=== PATIENT | male | born 1985 | race African-American/Black ===

== ENCOUNTER 2022-08-11 06:33 | Day surgery (SDC) | payer OTHER ==
[2022-08-11] VITALS (306 sets, daily range): BP systolic 92–184; BP diastolic 47–124
[~2022-08-11] VITALS: Ht 180.3 cm; Wt 114.6 kg
--- NOTE | 2022-08-11 06:45 | NUR ---
Patient arrived to the [facility] suite, identification and demographics confirmed. Patient to room 10, AAO, ambulatory, vitals obtained, ID/allergy/fall bands placed, changed into hospital gown, MANNIE hose, and non-slip socks. Procedure and timeline explained for treatment and discharge. All questions answered and the patient presents no concerns at this time.
--- NOTE | 2022-08-11 07:42 | NUR ---
Dr. Lopes telephoned with patient intake information including usage, dose, last dose/time taken and initial vital signs. Patient history and allergies reviewed with MD. Orders received for 15 mg PO Valium and 0.3 mg PO Clonidine now. Will reassess per protocol in 1.5 hours and update MD with assessment and vitals.
--- NOTE | 2022-08-11 08:00 | NUR ---
Patient medicated per MD orders. In addition to Clonidine and Valium, patient received 1000 mcg B12 PO, 20 mg Pepcid PO, and Scopolamine TD patch. Medication indication and education provided prior to adminstration.
[2022-08-11 08:13] LABS: BASO% 0.4 % (0-3); EOS% 4.4 % (0-8); HEMATOCRIT 41.3 % (39.0-50.0); HEMOGLOBIN 12.9 g/dl (14.0-18.0); IMMATURE GRANULOCYTES 0.3 % (0.0-5.0); LYMPH% 36.5 % (15-41); MEAN CORPUSCULAR HGB 28.4 pG CALC (26.0-32.0); MEAN CORPUSCULAR HGB CONC 31.2 g/dL CAL (32.0-36.0); MONO% 9.8 % (2-13); NEUT# 3.32 thou/uL (1.82-7.42); NEUT% 48.6 % (42-76); RED BLOOD COUNT 4.54 mill/uL (4.70-6.10)
[2022-08-11 08:43] LABS: ALBUMIN 4.6 g/dL (3.2-5.0); ALKALINE PHOSPHATASE 82 u/l (38-126); ANION GAP 10 (6-22 (CALC)); BILIRUBIN, TOTAL 0.3 mg/dL (0.2-1.3); BUN 18 mg/dL (9-20); BUN/CREATININE RATIO 20 (12-20 (CALC)); CARBON DIOXIDE 29 mmol/l (22-30); CHLORIDE 107 mmol/l (95-108); CREATININE 0.9 mg/dL (0.7-1.3); GFR FOR AFR.AMER. > 60 ML/MIN (>=60 (CALC)); GFR OTHER RACES > 60 ML/MIN (>=60 (CALC)); POTASSIUM 4.1 mmol/l (3.5-5.1); SGOT/AST 26 u/l (17-59); SODIUM 143 mmol/l (137-146); TOTAL PROTEIN 7.1 g/dL (6.3-8.2)
--- NOTE | 2022-08-11 08:45 | NUR ---
Patient resting comfortably in bed. Easily aroused, maintains focus, and drifts back to sleep. No signs of active withdrawal or distress noted at this time. Continuous SPO2, rhythm, and respiratory monitoring initiated. IVF @ 250 mL/HR, room air, VSS.
--- NOTE | 2022-08-11 09:30 | NUR ---
MD updated with 1.5 hour reassessment. Patient sleeping and vital signs are within pre-treatment parameters. No additional Clonidine or Valium at this time. Continuous monitoring in place.
--- NOTE | 2022-08-11 10:35 | NUR ---
Patient resting comfortably in bed. Easily aroused, maintains focus, and drifts back to sleep. No signs of withdrawal or distress noted at this time.
--- NOTE | 2022-08-11 11:05 | NUR ---
Nebulized treatment and Protonix administered per orders. Patient easily aroused, follows commands, appropriate conversation, reports no distress or withdrawal symtoms. Induction to begin in approximately 15 minutes.
--- NOTE | 2022-08-11 11:05 | NUR ---
Induction Note Patient to [facility] procedure room 10. Time out performed at 1105, patient placed on diagnostic cardiac sonographer, Chris hugger, and bilateral wrist restraints were applied for ET tube protection. Versed 5mg given IV push at 1106, tourniquet applied to RIGHT arm, lidocaine 100 mg IVP given at 1112, followed by Rocuronium 10mg IVP at 1112 and held for 45 seconds. Propofol 200 mg IVP given at 1114. Succinylcholine 100 mg IVP at 1114. Smooth intubation with 7.5 ETT @ 23L at 1115. Positive CO2. Positiveauscultation for air exchange. Patient placed on ventilator for spontaneous ventilation. Placed on Propofol IV drip at 1115. OG inserted at 1120. Positive air on auscultation. Positive gastric content. Stomach washed at this time.
--- NOTE | 2022-08-11 11:35 | NUR ---
OG close note Stomach washed at this time. Naltrexone 50 mg with Clonidine 0.2 mg via OG tube. OG will be clamped for 45 minutes.
--- NOTE | 2022-08-11 12:20 | NUR ---
OG open note OG open at this time. Gastric content draining into drainage bag. OG to drain for 45 minutes. Propofol will be titrated down based on patient.
--- NOTE | 2022-08-11 13:15 | NUR ---
OG close note Stomach washed at this time. Naltrexone 50 mg with Clonidine 0.3 mg via OG tube. OG will be clamped for 45 minutes.
[2022-08-11] MEDS ORDERED: NALTREXONE50 MG PO (13:19)
[2022-08-11] MEDS ORDERED: KLONOPIN2 MG PO (13:20)
[2022-08-11] MEDS ORDERED: CLONIDINE0.1 MG PO (13:20)
--- NOTE | 2022-08-11 15:00 | NUR ---
OG close note Stomach washed at this time. Naltrexone 50 mg with Clonidine 0.3 mg via OG tube. OG will be clamped for 45 minutes.
--- NOTE | 2022-08-11 16:30 | NUR ---
No OG close at this time. Patient minimally reacting to treatment. Vitals, total Naltrexone & Clonidine, current Propofol infusion rate, treatment duration, and patient assessment discussed with Dr. Lopes. No orders for medication administration at this time. OG will remain open to allow time for patient to continue reacting to therapy.
--- NOTE | 2022-08-11 17:15 | NUR ---
OG close note Stomach washed at this time. Naltrexone 0 mg with Clonidine 0.3 mg via OG tube. OG will be clamped for 45 minutes.
--- NOTE | 2022-08-11 18:30 | NUR ---
Extubation note Closing medications given Benadryl 50mg IV push, Decadron 10mg IV push,Magnesium 4 grams IV, Zofran 8mg IV push, Octreotide 100mcg SC. Stomach washed out prior to extubation. Suctioned gastric content. OG removed.pt had serosanguineous emesis, turned to side and suctiones oral cavity. Patient extubated without difficulty. Propofol Discontinued. Wrist restraints removed. Chris hugger Removed. See ANR Moderate sedate recovery record for further notes and assessment.
--- NOTE | 2022-08-11 18:40 | NUR ---
Emergent re-intubation for visualization of esophagus and trachea s/p extubation. Dr Lopes at bedside and gave the following orders for emergent administration: 160 mg IVP Propofol, 100 mg Succinylcholine, Propofol infusion, Protonix 40 mg IVP, Hydralazine 10 mg IVP x2 15 mins apart, STAT CXR. Propofol infusion discontinued at 1919, patient extubated without difficulty at 1943.
--- NOTE | 2022-08-11 18:40 | NUR ---
Pt noted with heme in orapharynx, intubated to facilitate placement of the OG tube for stomach decompression. Small amount of serosanguiness fluid from stomach .Hemostasis achieved in oropharynx with suction and compression with gauze packing. vss, o2 sat 100% on spontaneous vent settings. md at bedside. xray called for cxr.
--- NOTE | 2022-08-11 20:31 | NUR ---
notified of radiology report. No orders at this time.
--- NOTE | 2022-08-11 20:55 | NUR ---
Patient to room 283 in no acute distress. Transfer of care to Medical/Surgical [facility] RAYSHAWN Solorzano at bedside. 4L NC placed per orders, IVF to continue at 100 ml/hr. VSS. Patient making appropriate requests and answering yes/no questions. Bed alarm set. See chart/EMAR for procedural details and assessments. Handoff of care at the time of this note.
--- NOTE | 2022-08-11 21:10 | NUR ---
PATIENT RECEIVED TO ROOM 284. EASILY AROUSED. VITAL SIGNS OBTAINED, PATIENT HYPERTENSIVE; MEDICATED PRIOR TO ARRIVAL. NO DISTRESS NOTED. BEDSIDE REPORT RECEIVED FROM RAYSHAWN ORTEGA. BED LOCKED IN LOW POSITION, ALARM ACTIVATED.
[2022-08-12 00:31] VITALS: BP 139/84
--- NOTE | 2022-08-12 00:31 | NUR ---
PATIENT LAYING IN BED, A LITTLE RESTLESS. BP 139/84 AFTER APRESOLINE 10MG IVP. PATIENT STABLE, NO DISTRESS NOTED.
--- NOTE | 2022-08-12 01:10 | NUR ---
PATIENT RESTLESS AND AGITATED. YELLING OUT AT PEOPLE THAT ARE NOT PRESENT, ATIVAN 2MG GIVEN.
[2022-08-12 03:57] VITALS: BP 128/90
--- NOTE | 2022-08-12 04:14 | NUR ---
RESTING EYES CLOSED. VSS. NO DISTRESS NOTED.
--- NOTE | 2022-08-12 04:22 | NUR ---
SMALL BROWN EMESIS. HOB ELEVATED. PATIENT PREVIOUSLY ADMINISTERED SCHEDULED REGLAN.
[2022-08-12 05:39] LABS: HEMOGLOBIN 12.9 g/dl (14.0-18.0); IMMATURE GRANULOCYTES 0.7 % (0.0-5.0); LYMPH% 5.3 % (15-41); MEAN CELL VOLUME 86.7 fL CALC (80.0-100.0); MEAN CORPUSCULAR HGB 28.7 pG CALC (26.0-32.0); MEAN CORPUSCULAR HGB CONC 33.1 g/dL CAL (32.0-36.0); MONO% 5.6 % (2-13); NEUT# 20.42 thou/uL (1.82-7.42); NEUT% 88.4 % (42-76); RED BLOOD COUNT 4.5 mill/uL (4.70-6.10); RED CELL DISTRI WIDTH 12.8 % (11.5-15.5)
[2022-08-12 05:59] LABS: ALBUMIN 4.4 g/dL (3.2-5.0); ALKALINE PHOSPHATASE 90 u/l (38-126); BILIRUBIN, TOTAL 0.4 mg/dL (0.2-1.3); BUN 12 mg/dL (9-20); BUN/CREATININE RATIO 16 (12-20 (CALC)); CHLORIDE 108 mmol/l (95-108); CREATININE 0.8 mg/dL (0.7-1.3); GFR FOR AFR.AMER. > 60 ML/MIN (>=60 (CALC)); GFR OTHER RACES > 60 ML/MIN (>=60 (CALC)); MAGNESIUM 2.3 mg/dL (1.6-2.3); SGOT/AST 26 u/l (17-59); SODIUM 138 mmol/l (137-146); TOTAL PROTEIN 6.9 g/dL (6.3-8.2)
[2022-08-12 06:02] LABS: ANION GAP 14 (6-22 (CALC)); POTASSIUM 3.6 mmol/l (3.5-5.1)
[2022-08-12 06:06] LABS: CARBON DIOXIDE 20 mmol/l (22-30)
--- NOTE | 2022-08-12 07:00 | NUR ---
REPORT FROM MIRIAM TABARES. ASSUMED PT CARE.
[2022-08-12 07:19] VITALS: BP 128/85
--- NOTE | 2022-08-12 08:22 | NUR ---
PT EASILY AROUSABLE TO VERBAL STIMULI, BUT DROWSY. PT FOLLOWS COMMANDS AND IS ABLE TO MAKE NEEDS KNOWN. O2 @ 1L/M VIA NC, PT DESATS TO 80S WHILE SLEEPING, APNEA NOTED AT TIMES. NO APPARENT DISTRESS NOTED. CALL LIGHT WITHIN REACH AND BED ALARM ON FOR SAFETY. WILL CONTINUE TO MONITOR.
--- NOTE | 2022-08-12 09:17 | NUR ---
Dr. Lopes telephoned and updated with overnight events and PRN medications, morning labs and vital signs, ANR senior [employer] demonstrator and current progress on discharge requirements. Expected discharge today. Discharge plan in progress.
--- NOTE | 2022-08-12 11:07 | NUR ---
PT OOB TO SHOWER. PT AMBULATED WITH STEADY GAIT. CLEAN LINENS APPLIED TO BED. PT BACK INTO BED AFTER SHOWER. KENYETTA HUGGER PROVIDED FOR WARMTH. NO APPARENT DISTRESS NOTED. CALL LIGHT WITHIN REACH. WILL CONTINUE TO MONITOR.
--- NOTE | 2022-08-12 11:38 | NUR ---
Patient's support person (SP) telephoned with overnight update and to begin discharge planning. All questions answered satisfactorily, no concerns presented. SP agreeable to discharge plan.
--- NOTE | 2022-08-12 11:38 | NUR ---
Patient's support person (SP) telephoned with overnight update and to begin discharge planning. All questions answered satisfactorily, no concerns presented. SP agreeable to discharge plan.
--- NOTE | 2022-08-12 12:19 | NUR ---
PT RESTING IN BED WITH EYES CLOSED. NO APPARENT DISTRESS NOTED. O2 SAT 97% ON RA. WILL CONTINUE TO MONITOR.
[2022-08-12 12:35] VITALS: BP 159/89
--- NOTE | 2022-08-12 12:45 | NUR ---
Dr. Lopes to bedside for post-procedure evaluation. Report from RAYSHAWN Mayers. Discharge process reviewed, discharge requirements discussed with patient including ambulation, tolerance of food and oral fluids, and personal hygeine. Cleared for discharge after 1600.
--- NOTE | 2022-08-12 15:22 | NUR ---
IV site discontinued, cath intact. No edema , no redness, voices no discomfort.
--- NOTE | 2022-08-12 15:42 | NUR ---
Discharge instructions given. Patient verbalizes understanding of same. Discharged in stable condition via Ambulatory to Home with family. All belongings sent with pt.
--- NOTE | 2022-08-12 17:02 | NUR ---
IV site discontinued, cath intact. No edema , no redness, voices no discomfort.
--- NOTE | 2022-08-12 17:20 | NUR ---
Patient discharged in stable condition. Reports no nausea, tolerated PO intake, ambulatory with stable gait. IV removed x2. Patient remained alert and conversive during discharge teaching. states undestanding of discharge instructions and offers no further questions. Medication education given at length and patient and stated understanding.
--- NOTE | 2022-08-12 17:33 | NUR ---
Discharge instructions given. Patient verbalizes understanding of same. Discharged in stable condition via Ambulatory to Home with family. All belongings sent with pt.
== END 2022-08-12 17:35 | disposition home or self-care (01) | DRG 897 ==
LOC: ANR 06:33 → MS2 06:33 → ANR 09:00 → MS2 17:22 → ANR 08-12 17:35
PROVIDERS: ATTEND Anesthesiology Critical Care Medicine
DX: F11.20 Opioid dependence, uncomplicated (principal)
CPT/HCPCS: J2060; J2354; J3475